=== PATIENT | female | born 1985 | race Caucasian/White ===

== ENCOUNTER 2020-07-24 12:44 | Emergency (ER) | payer SELFPAY ==
[~2020-07-24 12:44] MED LIST: fentaNYL 250 MCG/5 ML SDV ONE
[2020-07-24] MEDS ORDERED: Sodium Chloride 0.9% 2.5 ML Syringe FLUSH PRN ×2 (12:47→12:51)
[2020-07-24] MEDS ORDERED: Sodium Chloride 0.9% 1,000 ML IV ONE (12:47)
[2020-07-24] MEDS ORDERED: Sodium Chloride 0.9% 10 ML Syringe FLUSH PRN ×2 (12:47→12:51)
[2020-07-24] MEDS ORDERED: propofoL 0 ML ONE (13:00)
[2020-07-24] MEDS ORDERED: Pantoprazole 40 MG Vial ONE (13:10)
[2020-07-24] MEDS ORDERED: Sodium Chloride 0.9% 40 ML ONE (13:10)
[2020-07-24] MEDS ORDERED: Octreotide 500 MCG in Sodium Chloride 0.9% 495 ML IV SCH (13:30)
--- NOTE | 2020-07-24 13:30 | CR ---
Indication: Tube placement Technique: Chest 1 view Comparison: None Findings/Impression: Endotracheal tube tip terminates 8 mm above the level of the rachel. This should be retracted. A gastric drainage tube tip courses below the level of the left hemidiaphragm. Cardiac size is within normal limits. Minimal patchy atelectasis or infiltrate in the right perihilar region. No significant effusion. No pneumothorax. Dictated by Ernestine Yang MD @ Jul 24 2020 1:16PM Signed by Dr. Ernestine Yang @ Jul 24 2020 1:28PM
--- NOTE | 2020-07-24 13:36 | EDM.PDOC ---
ED HPI GENERAL MEDICAL PROBLEM - General Chief Complaint: General Stated Complaint: gi bleed Time Seen by Provider: 07/24/20 13:35 Source of Information: Reports: EMS History Limitations: Reports: Other (intubated) - History of Present Illness INITIAL COMMENTS - FREE TEXT/NARRATIVE: Patient is a 35-year-old female with unknown past medical history who presented today to the ED per EMS intubated and unconscious. Per her boyfriend patient 2 days ago had some vomiting that they thought was just food poisoning but the patient continued to vomiting today they are out of her diet and the patient became lightheaded and passed out when EMS arrived patient was not maintaining her airway they intubated the patient in the field. EMS states that when the intubated patient had a lot of coffee-ground emesis in her throat that need to be suctioned out. Patient was safely intubated with patient arrived we had bilateral breath sounds. We had difficulty obtaining x-ray of EMS had a IO into the left tibia the patient was given IV fluids and. We took an x-ray to confirm tube placement the tube was 8 mm above the rachel and had to be put back to reset x-ray confirmed tube placement. Afterwards we did a central line for access we still have trouble obtaining peripheral access on patient. Labs were drawn from central line patient was shown to have a hemoglobin of 5. Due to time patient blood pressure was 70/50 heart rate was in the 1 teens. Patient already given 1 L of fluids patient was then ordered 2 units of O- blood and transfused. Patient blood pressure started to improve. We also put OG tube in and patient has some cough grimaces well with that was guaiac positive. We then gave patient ceftriaxone antibiotics we gave her a bolus of Protonix we did not have a drip we ordered bactericide drip as well. We also told EMS that they can start [facility] as needed doing a transport there. Patient endotracheal tube was confirmed central line was placed and [place] was placed. Patient will be shipped out flown to [facility]. - Related Data Allergies Allergy/AdvReac Type Severity Reaction Status Date / Time Unable to Assess Allergy Unverified 07/24/20 13:42 Home Meds: Home Meds . [Unable to Verify Home Med List] 07/24/20 [History] ED ROS GENERAL - Review of Systems Review Of Systems: Unable To Obtain Reason Not Obtained: pt intubated ED EXAM, GENERAL - Physical Exam Exam: See Below Exam Limited By: Other (intubated) General Appearance: Severe Distress Respiratory/Chest: Other (intubated b/l breath sounds) Cardiovascular: Normal Peripheral Pulses, Regular Rate, Rhythm GI/Abdominal: Normal Bowel Sounds Rectal (Female) Exam: Black Stool, Heme + Stool Neurological: Other (intubated no on sedation ) ED GENERAL MEDICAL PROCEDURES - Additional/Other Procedure(s) Other (Free Text) Procedure(s): NDICATION:no access low bp and gi beed ATTENDING PHYSICIAN: Dr. Schaefer Ultrasound Used: Y CONSENT: Consent was not obtain due to emergent situation PROCEDURE SUMMARY: A time out was performed. My hands were washed immediately prior to the procedure. I wore a surgical cap, mask with protective eyewear, sterile gown and sterile gloves throughout the procedure. The LEFT inguinal region was prepped using chlorhexidine scrub and draped in sterile fashion using a full drape and sterile probe cover employed. The femoral pulse was identified. The introducer needle was inserted inferior to the inguinal crease and into the femoral vein. Venous blood was withdrawn. The syringe was removed and a guidewire was advanced into the introducer needle. A small incision was made at the skin surface with a scalpel and the introducer needle was exchanged for a dilator over the guidewire. After appropriate dilation was obtained, the dilator was exchanged over the wire for a _ central venous catheter. The wire was removed and the catheter was sutured in place. A sterile sorbaview shield was placed over the catheter at the insertion site. The patient tolerated the procedure. At time of procedure completion, all ports aspirated and flushed properly. Estimated blood loss is 10cc. #1 Interpretation EKG Date: 07/24/20 Time: 13:20 Rhythm: Other (sinus tachy) Rate (Beats/Min): 115 ST-T: Depressed Course - Orders/Labs/Meds Orders: Active Orders 24 hr Category Date Time Status Blood Glucose Check, Bedside [RC] ONETIME Care 07/24/20 12:51 Active Cardiac Monitoring [RC] . DIRECTED Care 07/24/20 12:51 Active EKG Documentation Completion [RC] STAT Care 07/24/20 12:47 Active Chest 1V Frontal [CR] Stat Exams 07/24/20 13:34 Taken COMPREHENSIVE METABOLIC PN,CMP [CHEM] Stat Lab 07/24/20 13:08 Received ETHANOL BLOOD MEDICAL [CHEM] Stat Lab 07/24/20 13:08 Received LIPASE [CHEM] Stat Lab 07/24/20 13:08 Received TYPE AND SCREEN [BBK] Stat Lab 07/24/20 13:08 Results Norepinephrine Bit/0.9 % NaCl [Norepinephr-0.9% NaCl 4 Med 07/24/20 13:30 Active mg/250] 4 mg in 250 ml IV TITRATE Octreotide [SandoSTATIN] Med 07/24/20 13:45 Once 50 mcg IV ONETIME ONE Octreotide [SandoSTATIN] 500 mcg Med 07/24/20 13:30 Active Sodium Chloride 0.9% [Normal Saline] 495 ml IV Q10H Sodium Chloride 0.9% [Normal Saline] 1,000 ml Med 07/24/20 12:47 Active IV STAT Sodium Chloride 0.9% [Saline Flush] Med 07/24/20 12:47 Active 10 ml FLUSH ASDIRECTED PRN Sodium Chloride 0.9% [Saline Flush] Med 07/24/20 12:51 Active 10 ml FLUSH ASDIRECTED PRN Sodium Chloride 0.9% [Saline Flush] Med 07/24/20 12:47 Active 2.5 ml FLUSH ASDIRECTED PRN Sodium Chloride 0.9% [Saline Flush] Med 07/24/20 12:51 Active 2.5 ml FLUSH ASDIRECTED PRN Saline Lock Insert [OM.PC] Stat Oth 07/24/20 12:47 Ordered Saline Lock Insert [OM.PC] Stat Oth 07/24/20 12:51 Ordered Medication Orders Sodium Chloride (Normal Saline) 1,000 mls @ 999 mls/hr IV STAT ONE Stop: 07/24/20 13:47 Octreotide Acetate 500 mcg/ (Sodium Chloride) 500 mls @ 50 mls/hr IV Q10H LOULOU Norepinephrine Bitartrate (Norepinephr-0.9% Nacl 4 Mg/250) 4 mg in 250 mls @ 7.5 mls/hr IV TITRATE LOULOU; Protocol Octreotide Acetate (Octreotide 100 Mcg/1 Ml Amp) 50 mcg IV ONETIME ONE Stop: 07/24/20 13:46 Sodium Chloride (Sodium Chloride 0.9% 10 Ml Syringe) 10 ml FLUSH ASDIRECTED PRN PRN Reason: Keep Vein Open Sodium Chloride (Sodium Chloride 0.9% 2.5 Ml Syringe) 2.5 ml FLUSH ASDIRECTED PRN PRN Reason: Keep Vein Open Sodium Chloride (Sodium Chloride 0.9% 10 Ml Syringe) 10 ml FLUSH ASDIRECTED PRN PRN Reason: Keep Vein Open Sodium Chloride (Sodium Chloride 0.9% 2.5 Ml Syringe) 2.5 ml FLUSH ASDIRECTED PRN PRN Reason: Keep Vein Open Labs: Laboratory Tests 07/24/20 07/24/20 07/24/20 Range/Units 12:55 12:55 13:08 WBC 46.58 H (4.0-11.0) K/uL RBC 1.51 L (4.30-5.90) M/uL Hgb 5.0 L (12.0-16.0) g/dL Hct 16.8 L (36.0-46.0) % MCV 111.3 H (80.0-98.0) fL MCH 33.1 H (27.0-32.0) pg MCHC 29.8 L (31.0-37.0) g/dL RDW Std Deviation 79.8 H (28.0-62.0) fl RDW Coeff of Rogelio 20 H (11.0-15.0) % Plt Count 282 (150-400) K/uL MPV 12.30 H (7.40-12.00) fL Add Manual Diff YES Neutrophils % (Manual) 54 (48.0-80.0) % Band Neutrophils % 4 % Lymphocytes % (Manual) 31 (16.0-40.0) % Monocytes % (Manual) 9 (0.0-15.0) % Eosinophils % (Manual) 2 (0.0-7.0) % Nucleated RBC % 1.0 /100WBC Absolute Seg Neuts 25.2 H (1.4-5.7) Band Neutrophils # 1.9 Lymphocytes # (Manual) 14.4 H (0.6-2.4) Monocytes # (Manual) 4.2 H (0.0-0.8) Eosinophils # (Manual) 0.9 H (0.0-0.7) Nucleated RBCs # 0 K/uL INR 2.81 ABG pH (7.35-7.45) ABG pCO2 (35-45) mmHG ABG pO2 (75-100) mmHG ABG HCO3 (22-26) mEq/L ABG Total CO2 ABG Base Excess (-2.0-2.0) Blood Type O POSITIVE 07/24/20 Range/Units 13:10 WBC (4.0-11.0) K/uL RBC (4.30-5.90) M/uL Hgb (12.0-16.0) g/dL Hct (36.0-46.0) % MCV (80.0-98.0) fL MCH (27.0-32.0) pg MCHC (31.0-37.0) g/dL RDW Std Deviation (28.0-62.0) fl RDW Coeff of Rogelio (11.0-15.0) % Plt Count (150-400) K/uL MPV (7.40-12.00) fL Add Manual Diff Neutrophils % (Manual) (48.0-80.0) % Band Neutrophils % % Lymphocytes % (Manual) (16.0-40.0) % Monocytes % (Manual) (0.0-15.0) % Eosinophils % (Manual) (0.0-7.0) % Nucleated RBC % /100WBC Absolute Seg Neuts (1.4-5.7) Band Neutrophils # Lymphocytes # (Manual) (0.6-2.4) Monocytes # (Manual) (0.0-0.8) Eosinophils # (Manual) (0.0-0.7) Nucleated RBCs # K/uL INR ABG pH 6.930 L* (7.35-7.45) ABG pCO2 36 (35-45) mmHG ABG pO2 97 (75-100) mmHG ABG HCO3 8 L (22-26) mEq/L ABG Total CO2 8.3 ABG Base Excess -22.5 L (-2.0-2.0) Blood Type Meds: Medications Generic Name Dose Route Start Last Admin Trade Name Freq PRN Reason Stop Dose Admin Sodium Chloride 1,000 mls @ 999 mls/hr 07/24/20 12:47 Normal Saline IV 07/24/20 13:47 STAT ONE Octreotide Acetate 500 mcg/ 500 mls @ 50 mls/hr 07/24/20 13:30 Sodium Chloride IV Q10H LOULOU 50 MCG/HR Norepinephrine Bitartrate 4 mg in 250 mls @ 7.5 mls/hr 07/24/20 13:30 Norepinephr-0.9% Nacl 4 Mg/250 IV TITRATE LOULOU Protocol 2 MCG/MIN Octreotide Acetate 50 mcg 07/24/20 13:45 Octreotide 100 Mcg/1 Ml Amp IV 07/24/20 13:46 ONETIME ONE Sodium Chloride 10 ml 07/24/20 12:47 Sodium Chloride 0.9% 10 Ml Syringe FLUSH ASDIRECTED PRN Keep Vein Open Sodium Chloride 2.5 ml 07/24/20 12:47 Sodium Chloride 0.9% 2.5 Ml Syringe FLUSH ASDIRECTED PRN Keep Vein Open Sodium Chloride 10 ml 07/24/20 12:51 Sodium Chloride 0.9% 10 Ml Syringe FLUSH ASDIRECTED PRN Keep Vein Open Sodium Chloride 2.5 ml 07/24/20 12:51 Sodium Chloride 0.9% 2.5 Ml Syringe FLUSH ASDIRECTED PRN Keep Vein Open Discontinued Medications Generic Name Dose Route Start Last Admin Trade Name Freq PRN Reason Stop Dose Admin Propofol Confirm 07/24/20 13:00 Diprivan 100 Ml Administered 07/24/20 13:01 Dose 100 mls @ as directed .ROUTE .STK-MED ONE Sodium Chloride Confirm 07/24/20 13:10 Normal Saline Administered 07/24/20 13:11 Dose 40 mls @ as directed .ROUTE .STK-MED ONE Ceftriaxone Sodium/Dextrose Confirm 07/24/20 13:20 Rocephin In Dextrose,Iso-Osm 1 Gm/50 Ml Administered 07/24/20 13:21 Dose 50 mls @ as directed .ROUTE .STK-MED ONE Pantoprazole Sodium Confirm 07/24/20 13:10 Pantoprazole 40 Mg Vial Administered 07/24/20 13:11 Dose 80 mg .ROUTE .STK-MED ONE Departure - Departure Time of Disposition: 13:53 Disposition: DC/Tfer to Acute Hospital 02 Condition: Good Clinical Impression: GI bleed - Discharge Information Referrals: PCP,None [Primary Care Provider] - Forms: ED Department Discharge - My Orders Last 24 Hours: My Active Orders 07/24/20 13:30 Norepinephrine Bit/0.9 % NaCl [Norepinephr-0.9% NaCl 4 mg/250] 4 mg in 250 ml IV TITRATE Octreotide [SandoSTATIN] 500 mcg Sodium Chloride 0.9% [Normal Saline] 495 ml IV Q10H 07/24/20 13:45 Octreotide [SandoSTATIN] 50 mcg IV ONETIME ONE - Assessment/Plan Last 24 Hours: My Active Orders 07/24/20 13:30 Norepinephrine Bit/0.9 % NaCl [Norepinephr-0.9% NaCl 4 mg/250] 4 mg in 250 ml IV TITRATE Octreotide [SandoSTATIN] 500 mcg Sodium Chloride 0.9% [Normal Saline] 495 ml IV Q10H 07/24/20 13:45 Octreotide [SandoSTATIN] 50 mcg IV ONETIME ONE Plan: Patient is a 35-year-old female who is brought in by EMS for nausea vomiting had to be intubated in the field. Patient likely has a GI bleed he has a hemoglobin was 5. We placed a central line he had difficult time obtaining access. We gave patient 2 units of O- blood. We did not give sedation the patient was not moving but order fentanyl drip. Patient was started on clears ceftriaxone given Protonix and we told EMS to mix a we will follow back and give the blood pressure does not improve at the second unit of RBCs. Patient will be flown to nearest hospital.
[2020-07-24 13:44] LABS: BLOOD UREA NITROGEN,BUN 47 mg/dL (7.0-18.0); CARBON DIOXIDE,CO2 8.1 mmol/L (21.0-32.0); CHLORIDE,CL 91 mmol/L (98-107); GLUCOSE RANDOM 94 mg/dL (74-106); LIPASE 311 U/L (73-393); POTASSIUM,K 4.9 mmol/L (3.5-5.1); SODIUM,NA 127 mmol/L (136-145)
[2020-07-24] MEDS ORDERED: Octreotide 100 MCG/1 ML Amp IV ONE (13:45)
[2020-07-24] MEDS ORDERED: cefTRIAXone 1 GM in Premix Bag 1 BAG IV ONE (13:46)
--- NOTE | 2020-07-24 13:50 | CR ---
Indication: Tube placement Technique: Chest 1 view Comparison: Same date at 12:57 p.m. Findings/Impression: Endotracheal tube tip terminates 4.5 cm above the level of the rachel. A gastric drainage tube tip courses below the level of the left hemidiaphragm. Remainder of the exam is stable compared to the prior study. Dictated by Ernestine Yang MD @ Jul 24 2020 1:47PM Signed by Dr. Ernestine Yang @ Jul 24 2020 1:48PM
[2020-07-24] MEDS ORDERED: Pantoprazole 80 MG in Sodium Chloride 0.9% 20 ML IVPUSH ONE (13:51)
[2020-07-24] MEDS ORDERED: Sodium Chloride 0.9% 1,000 ML IV SCH (14:00)
== END 2020-07-24 14:18 ==
LOC: EDSEX 12:44 → MW.ED 12:44
DX: K92.2 Gastrointestinal hemorrhage, unspecified (principal)
CPT/HCPCS: 36415; 36430; 36556; 36600; 43752; 51701; 71045; 80053; 80307; 81001; 81025; 82803; 83690; 85025; 85610; 86850; 86900; 86901; 86920; 86921; 86922; 93005; 94002; 96365; 96368; 96375; 99285; C9113; J0696; J2354; J3010; J7030; J7040; J7050; P9016